=== PATIENT | female | born 2000 | race Caucasian/White ===

== ENCOUNTER → 2024-03-10 14:56 | Outpatient (CLI) | payer OTHER, SELFPAY ==
[2024-03-10 16:03] LABS: Natera Collection Specimen Collected
[2024-03-10 16:12] LABS: Add Manual Diff / Slide Review NO; Basophils Absolute Auto 0 /uL (0-100); Basophils Percent Auto 0.4 % (0-2); Eosinophils Absolute Auto 100 /uL (0-450); Eosinophils Percent Auto 1.2 % (2-4); Hematocrit 36.4 % (36-46); Hemoglobin 12.3 g/dL (12.0-16.0); Lymphocytes Absolute Auto 1900 /uL (1100-4500); Lymphocytes Percent Auto 31.2 % (25-40); Mean Corpuscular HGB Conc 33.8 % (30-36); Mean Corpuscular Hemoglobin 30.6 PG (26-34); Mean Corpuscular Volume 90.6 fL (80-100); Monocytes Absolute Auto 500 /uL (0-900); Monocytes Percent Auto 8.6 % (3-14); Neutrophils Absolute Auto 3600 /uL (1500-7000); Neutrophils Percent Auto 58.6 % (50-75); Platelet Count 215 X10^3/uL (150-400); Red Blood Cell Count 4.01 X10^6/uL (4.0-5.2); Red Cell Distribution Width 13.7 % (11.6-14.8); White Blood Cell Count 6.1 X10^3/uL (4.5-11.0)
[2024-03-11 15:24] LABS: Hepatitis B Surface Antigen NEGATIVE s/c (NEGATIVE); Rubella Antibody IgG 19.4 IU/mL (>15)
[2024-03-11 15:36] LABS: HIV 1 & 2 Ab/Ag 4th Gen Combo NEGATIVE (NEGATIVE); Hep C Virus Ab w/Reflex Quant NEGATIVE s/c (NEGATIVE)
[2024-03-12 04:08] LABS: RPR Screen Non Reactive (Non Reactive)
[2024-03-12 05:41] LABS: Varicella IgG Antibody Reactive (Non Reactive)
== END ==
PROVIDERS: Obstetrics & Gynecology; Referring Provider Specialist; Visit Provider Specialist
DX: Z34.01 Encounter for supervision of normal first pregnancy, first trimester (principal); Z3A.10 10 weeks gestation of pregnancy
CPT/HCPCS: 36415; 80055; 86787; 86803; 86850; 86900; 86901; 87389

== ENCOUNTER 2024-03-25 10:41 | Emergency (ER) | payer OTHER, SELFPAY ==
[2024-03-25] VITALS (8 sets, daily range): BP systolic 105–113; BP diastolic 57–76; PULSE 75–77; RESP 14–16; TEMP 37.5; O2SAT 97–99; BMI 19.6
--- NOTE | 2024-03-25 10:59 | DI.US.S_ITS ---
PROCEDURE: US OB <= 14 WEEKS FETUS INDICATIONS: SYNCOPE AND ABDOMEN PAIN OUTSIDE/PRIOR DATING DATA: Last menstrual period (LMP): 12/29/23. LMP-based estimated date of delivery (MELLISSA): 10/04/24. First dating scan (date and location): 03/10/24. Estimated date of delivery (MELLISSA) from first dating scan: 09/27/24. The calculations are made using the above MELLISSA of 09/27/24. TECHNIQUE: Real-time scanning was performed of the fetus and maternal pelvic organs, with image documentation. Endovaginal scanning was also performed to better visualize the fetus and maternal ovaries. COMPARISON: [facility], , OB <= 14 WEEKS FETUS, 03/10/2024, 14:39. FINDINGS: Embryo: Single living intrauterine gestation with crown-rump length 7.1 cm which correlates with a gestational age of 13 weeks 2 days +/-5 days. Heart rate: 152 Maternal organs: Ovaries not well seen on the right arterial and venous flow documented on the left.. IMPRESSION: Appropriate interval growth for the fetus. viability is currently documented. Nonvisualization of the right ovary, normal appearing left ovary. Dictated by: Judah Bryan M.D. on 03/25/2024 at 11:50 Approved by: Judah Bryan M.D. on 03/25/2024 at 11:52
--- NOTE | 2024-03-25 11:10 | EKG_ITS ---
[address] [address] Test Date: 2024-03-25 Pat Name: Raina Vazquez Department: Room: Gender: Female Associate Spa Director: RADHA : 2000 Requested By: Order Number: [id number] Reading MD: Caio Soriano MD Measurements Intervals [place] Rate: 70 P: 38 AL: 160 QRS: 62 QRSD: 92 T: 20 QT: 366 QTc: 395 Interpretive Statements Normal sinus rhythm Incomplete right bundle branch block NO PRIOR TRACING Electronically Signed On 03-26-2024 6:50:29 PST by Caio Soriano MD
[2024-03-25 11:26] LABS: Add Manual Diff / Slide Review NO; Basophils Absolute Auto 0 /uL (0-100); Basophils Percent Auto 0.4 % (0-2); Eosinophils Absolute Auto 0 /uL (0-450); Eosinophils Percent Auto 0.5 % (2-4); Lymphocytes Absolute Auto 1500 /uL (1100-4500); Lymphocytes Percent Auto 26.9 % (25-40); Mean Corpuscular HGB Conc 33.5 % (30-36); Mean Corpuscular Hemoglobin 30.1 PG (26-34); Monocytes Absolute Auto 500 /uL (0-900); Monocytes Percent Auto 8.6 % (3-14); Neutrophils Absolute Auto 3500 /uL (1500-7000); Neutrophils Percent Auto 63.6 % (50-75); Platelet Count 207 X10^3/uL (150-400); Red Cell Distribution Width 13.9 % (11.6-14.8); White Blood Cell Count 5.4 X10^3/uL (4.5-11.0)
[2024-03-25 11:40] LABS: Alanine Aminotransferase 12 IU/L (<35); Albumin 4.1 g/dL (3.5-5.0); Albumin Globulin Ratio 1.5 (1.0-2.8); Alkaline Phosphatase 42 U/L (38-126); Aspartate Aminotransferase 22 IU/L (14-36); BUN Creatinine Ratio 20.7 (6-22); Bilirubin Total 0.4 mg/dL (0.2-1.3); Blood Urea Nitrogen 12 mg/dL (7-17); Calcium 9.4 mg/dL (8.4-10.2); Carbon Dioxide 22 mmol/L (22-32); Chloride 109 mmol/L (98-107); Estimated Glomerular Filt Rate > 60 mL/min (>60); Globulin 2.8 g/dL (1.7-4.1); Glucose 85 mg/dL (70-100); HEMOLYSIS < 15 (0-50); Potassium 4.4 mmol/L (3.4-5.1); Sodium 135 mmol/L (137-145); Total Protein 6.9 g/dL (6.3-8.2)
[2024-03-25 12:20] LABS: HCG Quantitative /Beta subunit 92633 mIU/mL
--- NOTE | 2024-03-25 16:26 | ED_ITS ---
HPI - General Adult General Chief complaint: Abdominal Pain Stated complaint: Blacked out 13 weeks Time Seen by Provider: 03/25/24 16:24 Source: patient, RN notes reviewed and old records reviewed Mode of arrival: Ambulatory Limitations: no limitations History of Present Illness HPI narrative: 23 year old female approximately 13 weeks with no reported medical issues. Patient presents with complaint of some dizzy spells intermittently. Patient has noticed it over the past 2 weeks has felt little bit lightheaded last episode was yesterday. She states it happened when she was standing for prolonged periods of time feel sort of lightheaded starts to get sort of spots in her vision we will typically sit down and symptoms resolved. She has not had any syncopal episodes. No fevers. no chills, no chest pain or shortness of breath. She has had some mild nausea which she relates to her . No vomiting. She was has a little bit of right-sided abdominal pain she states feels somewhat similar to when she has had ovarian cysts. She describes it as mild. Patient at established with Dr. Barahona has had 1 visit. Patient states only medications are vitamin. She has had prior wisdom tooth removal and excision of skin lesion but no other surgeries. No known drug allergies. No tobacco, alcohol or recreational drugs. Related Data Home Medications Medication Instructions Recorded Confirmed vitamin-ferrous sulfate tab PO 02/12/24 03/10/24 27 mg iron-folic acid 0.8 mg tablet Allergies Allergy/AdvReac Type Severity Reaction Status Date / Time Latex, Natural Rubber Allergy Intermediate Rash Verified 03/25/24 10:55 Review of Systems Review of Systems ROS Unobtainable: All systems reviewed & are unremarkable except as noted in HPI and below Patient History Medical History Immunization, BCG Surgical History History of skin surgery [place] teeth extracted Social History marital status: unmarried,living together number of children: 0 household members: significant other lives independently: Yes caregiver/support person: No housing: apartment pets and animals: No education level: college (some college) occupational status: previously employed current occupational exposures/hazards: No special bogdan needs: No travel history: over 6 months ago seatbelt use: always helmet use: No water heater temp set < 120 deg: Yes working smoke detector in home: Yes fire extinguisher in home: Yes carbon monox detector in home: Yes firearms in home: No do you feel safe at home: Yes Smoking Status: Never smoker second hand exposure: No alcohol intake: former (~1-2/week when not ) substance use type: does not use during the past year weight has: decreased > 10 lbs (thinks it was due to ) well-balanced diet: daily or most days daily servings fruits/ve-4 caffeine: Yes (AM cup coffee) Type(s) of exercise: walking Smoking Status: Never smoker Exam Narrative Exam Narrative: GENERAL: Alert and oriented x three, female in mild distress HEENT: Head normocephalic, atraumatic, EOMI, pupils reactive, face symmetric, moist mucous membranes NECK: Supple, full range of motion CARDIOVASCULAR: Regular rate and rhythm without murmurs, rubs or gallops. RESPIRATORY: Breath sounds equal bilaterally, no wheezes rales or rhonchi. ABDOMEN: Soft, nontender. Normoactive bowel sounds all 4 quadrants. No guarding or rebound, rigidity, no mass : No CVA tenderness EXTREMITIES: Normal range of motion, no clubbing or edema. Neurovascularly intact NEUROLOGICAL: Cranial nerves II through XII grossly intact. Moving all extremities SKIN: Warm, dry, no petechiae, no rashes or lesions. Initial Vital Signs Initial Vital Signs: Vital Signs Temperature 99.5 F 03/25/24 10:55 Pulse Rate 75 03/25/24 10:55 Respiratory Rate 14 03/25/24 10:55 Blood Pressure 112/64 03/25/24 10:55 Pulse Oximetry 97 03/25/24 10:55 Oxygen Delivery Method Room Air 03/25/24 10:55 Course Orders Ordered: ED Orders 03/25/24 11:05 Complete Blood Count AUTO DIFF Stat Comprehensive Metabolic Panel Stat HCG Quantitative /Beta subunit Stat Type and Screen Stat 03/25/24 11:10 EKG-12 Lead Routine Vital Signs Vital signs: Vital Signs - 8 hr 03/25/24 13:22 03/25/24 13:22 03/25/24 13:23 Pulse Rate 77 Respiratory Rate Blood Pressure 113/57 L Pulse Oximetry 98 97 Oxygen Delivery Method Room Air Room Air 03/25/24 13:30 03/25/24 14:00 03/25/24 14:30 Pulse Rate Respiratory Rate Blood Pressure 106/58 L 111/76 105/60 Pulse Oximetry Oxygen Delivery Method 03/25/24 15:00 03/25/24 17:21 Pulse Rate 75 Respiratory Rate 16 Blood Pressure 111/63 112/67 Pulse Oximetry 99 Oxygen Delivery Method Room Air Medical Decision Making Lab Data 03/25/24 11:05 03/25/24 11:05 Labs: Lab Results 03/25/24 Range/Units 11:05 WBC 5.4 (4.5-11.0) X10^3/uL RBC 4.00 (4.0-5.2) X10^6/uL Hgb 12.0 (12.0-16.0) g/dL Hct 36.0 (36-46) % MCV 90.0 (80-100) fL MCH 30.1 (26-34) PG MCHC 33.5 (30-36) % RDW 13.9 (11.6-14.8) % Plt Count 207 (150-400) X10^3/uL Neut % (Auto) 63.6 (50-75) % Lymph % (Auto) 26.9 (25-40) % [place] % (Auto) 8.6 (3-14) % Eos % (Auto) 0.5 L (2-4) % Baso % (Auto) 0.4 (0-2) % Neut # (Auto) 3500 (5214-0883) /uL Lymph # (Auto) 1500 (9551-2012) /uL [place] # (Auto) 500 (0-900) /uL Eos # (Auto) 0 (0-450) /uL Baso # (Auto) 0 (0-100) /uL Sodium 135 L (137-145) mmol/L Potassium 4.4 (3.4-5.1) mmol/L Chloride 109 H (98-107) mmol/L Carbon Dioxide 22 (22-32) mmol/L BUN 12 (7-17) mg/dL Creatinine 0.58 (0.52-1.04) mg/dL Estimated GFR > 60 (>60) mL/min BUN/Creatinine Ratio 20.7 (6-22) Glucose 85 (70-100) mg/dL Calcium 9.4 (8.4-10.2) mg/dL Total Bilirubin 0.4 (0.2-1.3) mg/dL AST 22 (14-36) IU/L ALT 12 (<35) IU/L Alkaline Phosphatase 42 (38-126) U/L Total Protein 6.9 (6.3-8.2) g/dL Albumin 4.1 (3.5-5.0) g/dL Globulin 2.8 (1.7-4.1) g/dL Albumin/Globulin Ratio 1.5 (1.0-2.8) HCG, Quant 87558 mIU/mL Blood Type O Positive Antibody Screen Negative Urine Dip Bedside Urine Glucose Negative Bedside Urine Bilirubin - Negative Bedside Urine Ketone - Negative Urine Specific [place] 1.030 Bedside Urine Occult Blood - Negative Bedside Urine pH 6.0 Bedside Urine Protein - Negative Bedside Urine Urobilinogen - Negative Bedside Urine Nitrite - Negative Bedside Urine Leukocytes - Negative Esterase Point of care testing: Urine Dip Bedside Urine Glucose Negative Bedside Urine Bilirubin - Negative Bedside Urine Ketone - Negative Urine Specific [place] 1.030 Bedside Urine Occult Blood - Negative Bedside Urine pH 6.0 Bedside Urine Protein - Negative Bedside Urine Urobilinogen - Negative Bedside Urine Nitrite - Negative Bedside Urine Leukocytes - Negative Esterase Imaging Data US - ASSESSMENT MANAGER: Radiologist's Impression: [place] [address] Ultrasound Report Signed Patient: Raina Vazquez MR#: [id number] : 2000 Acct:[id number] Age/Sex: 23 / F Date of Service: 03/25/24 Loc: ED Accession Number: [id number] Procedure: US OB <= 14 weeks fetus Ordering Provider: Monique Cruz D.O. PROCEDURE: US OB <= 14 WEEKS FETUS INDICATIONS: SYNCOPE AND ABDOMEN PAIN OUTSIDE/PRIOR DATING DATA: Last menstrual period (LMP): 12/29/23. LMP-based estimated date of delivery (MELLISSA): 10/04/24. First dating scan (date and location): 03/10/24. Estimated date of delivery (MELLISSA) from first dating scan: 09/27/24. The calculations are made using the above MELLISSA of 09/27/24. TECHNIQUE: Real-time scanning was performed of the fetus and maternal pelvic organs, with image documentation. Endovaginal scanning was also performed to better visualize the fetus and maternal ovaries. COMPARISON: [facility], US, US OB <= 14 WEEKS FETUS, 03/10/2024, 14:39. FINDINGS: Embryo: Single living intrauterine gestation with crown-rump length 7.1 cm which correlates with a gestational age of 13 weeks 2 days +/-5 days. Heart rate: 152 Maternal organs: Ovaries not well seen on the right arterial and venous flow documented on the left.. IMPRESSION: Appropriate interval growth for the fetus. viability is currently documented. Nonvisualization of the right ovary, normal appearing left ovary. Dictated by: Judah Bryan M.D. on 03/25/2024 at 11:50 Approved by: Judah Bryan M.D. on 03/25/2024 at 11:52 ECG Data Attestation: I personally reviewed and interpreted this ECG as follows: Prior ECG tracings: not available for review Interpretation: Sinus rhythm incomplete right bundle, rate of 70, [place] 160 QRS of 92 QTC of 395. No priors for comparison. MDM Narrative Medical decision making narrative: 23-year-old female approximately 13 weeks' gestation has had some mild dizziness but no syncopal episodes notes it has been she was upright for prolonged periods of time. Last episode was yesterday. Patient's overall healthy-appearing no major lab changes on CBC CMP EKG shows incomplete right bundle-branch with no priors. Patient has a little bit of right lower quadrant pain but she describes as mild, ultrasounds has intrauterine gestation, right ovaries not fully visualized but she was very mildly tender on exam and felt appropriate for discharge with follow up with OBGYN. Patient expresses understanding reviewed we did not visualize the right ovary but suspicion for ectopic is lower at this time, appendectomy, kidney stone etcetera is also lower. Labs show normal CBC, sodium 135 otherwise appropriate chemistries except for chloride of 109 hCG quantitative is 92,633 Appropriate interval growth for fetus viability currently documented no visualization right ovary normal-appearing left ovary. Gestational age of 13 weeks 2 days +/-5 days with a rate of 152. EKG shows sinus rhythm incomplete right bundle-branch rate of 70 O positive. Discharge Plan Departure Patient Disposition: Home Clinical Impression: Abdominal pain affecting Activity Restrictions/Additional Instructions: Please follow up with with the provider for rechecked. Your imaging today showed intrauterine , they were not able to well visualize your right ovary if you are having any persistent pain please follow up. Your blood type was O positive You can take acetaminophen up to a 1000 mg every 6 hours as needed for pain. Make sure you are hydrating regularly. Please return for fevers, severe headaches, new chest pain or shortness of breath, new or worsening abdominal back or flank pain, any persistent vomiting, black or bloody stools, worsening or lightheadedness or passing out or other new or concerning changes. Prescriptions: No Action vit-ferrous sulfat-FA 27 mg iron- 0.8 mg tablet PO Referrals: Didi Barahona MD [Physician] - Stand Alone Forms: Patient Portal/API/Survey
== END 2024-03-25 17:20 | disposition home or self-care (01) ==
PROVIDERS: Emergency Provider Emergency Medicine
DX: O26.891 Other specified pregnancy related conditions, first trimester (principal); R42 Dizziness and giddiness; I45.10 Unspecified right bundle-branch block; R10.31 Right lower quadrant pain; R11.0 Nausea; Z3A.13 13 weeks gestation of pregnancy
CPT/HCPCS: 36415; 76801; 76817; 80053; 81003; 84702; 85025; 86850; 86900; 86901; 93005; 93010; 93976; 99283; 99284

== ENCOUNTER → 2024-05-05 15:20 | Outpatient (CLI) | payer OTHER, SELFPAY | PROVIDERS: Referring Provider Obstetrics & Gynecology; Visit Provider Obstetrics & Gynecology | DX: Z34.92 Encounter for supervision of normal pregnancy, unspecified, second trimester (principal); Z3A.19 19 weeks gestation of pregnancy | CPT/HCPCS: 36415; 82105 ==

== ENCOUNTER → 2024-05-12 14:29 | Outpatient (CLI) | payer OTHER, SELFPAY ==
--- NOTE | 2024-05-12 14:30 | DI.US.S_ITS ---
PROCEDURE: US OB >= 14 WEEKS FETUS INDICATIONS: 20 week anatomy scan OUTSIDE/PRIOR DATING DATA: Last menstrual period (LMP): 12/29/2023. LMP-based estimated date of delivery (MELLISSA): 10/04/2024. First dating scan (date and location): 03/10/2024. Estimated date of delivery (MELLISSA) from first dating scan: 09/27/2024. The calculations are made using the working MELLISSA of 09/28/2019. TECHNIQUE: Real-time scanning was performed of the fetus, with image documentation and biometric measurements. Endovaginal scanning: No COMPARISON: None. FINDINGS: General: A single living intrauterine gestation is present. Presentation: Breech. Placenta: Placental position is anterior , without previa. Amniotic fluid index: 15.0 cm, normal range is 5-24 cm. Single deepest vertical pocket is 6.3 cm. heart rate: 127 beats per minute. Maternal cervical canal: 5.0 cm long. Normal lower limit is 2.5 cm. biometrics: Biparietal diameter: 4.5 cm, 19 week 5 day Head circumference: 17.4 cm, 19 week 6 day Abdominal circumference: 15.7 cm, 20 week 6 day Femur length: 3.1 cm, 19 week 4 day Clinically estimated gestational age: 20 week 2 day Composite gestational age from present scan: 20 week 0 day Estimated weight and percentile: 338 g, 40 percentile Anatomic survey: Neuro: Ventricles are non-dilated at less than 10 mm. Cisterna magna is normal at 3-11 mm. Cerebellum is normal in size and morphology. Nuchal skin fold: Normal at less than 6 mm between 14-21 weeks gestational age. Face: Nose and lips, facial profile are normal. Spine: No evidence for spina bifida. Heart: 4-chambered heart is present, with normal ventricular outflow tracts. Diaphragm: Diaphragm is intact. Stomach: Left-sided stomach is present. Kidneys: No hydronephrosis. Normal is less than 5 mm in 2nd trimester, less than 7 mm in 3rd trimester. Cord: 3-vessel cord has orthotopic insertion. Bladder: Normal in size. Extremities: All 4 extremities identified. IMPRESSION: Single live intrauterine consistent with 20 week 0 day gestation by current ultrasound Approved by: Sen Mcdaniel M.D. on 05/12/2024 at 18:51
== END ==
PROVIDERS: Referring Provider Obstetrics & Gynecology; Visit Provider Obstetrics & Gynecology
DX: Z3A.20 20 weeks gestation of pregnancy (principal); Z34.92 Encounter for supervision of normal pregnancy, unspecified, second trimester
CPT/HCPCS: 76811

== ENCOUNTER → 2024-06-18 12:03 | Outpatient (CLI) | payer OTHER, SELFPAY ==
[2024-06-18 14:25] LABS: Hematocrit 33.1 % (36-46); Hemoglobin 10.9 g/dL (12.0-16.0)
[2024-06-18 14:57] LABS: GTT (PREG) 1 Hour PP 50gm Dose 100 mg/dL (76-139)
== END ==
PROVIDERS: Referring Provider Specialist; Visit Provider Specialist
DX: Z34.02 Encounter for supervision of normal first pregnancy, second trimester (principal); Z3A.26 26 weeks gestation of pregnancy
CPT/HCPCS: 82950; 85014; 85018; 87086

== ENCOUNTER 2024-07-16 10:05 | Outpatient (CLI) | payer OTHER, SELFPAY | END 2024-07-16 10:46 | disposition home or self-care (01) | LOC: OB 12:17 | PROVIDERS: Referring Provider Obstetrics & Gynecology; Visit Provider Obstetrics & Gynecology | DX: O47.03 False labor before 37 completed weeks of gestation, third trimester (principal); Z3A.29 29 weeks gestation of pregnancy | CPT/HCPCS: 59025; G0378; G0379 ==

== ENCOUNTER 2024-08-17 07:06 | Observation (INO) | payer OTHER, SELFPAY ==
[2024-08-17 07:55] LABS: Appearance Urine UA CLEAR; Bilirubin Urine UA NEGATIVE (NEGATIVE); Color Urine UA YELLOW; Glucose Urine UA NEGATIVE (Negative); Ketones Urine UA NEGATIVE (NEGATIVE); Leukocyte Esterase Urine UA NEGATIVE (NEGATIVE); Nitrite Urine UA NEGATIVE (Negative); Occult Blood Urine UA NEGATIVE (Negative); Protein Urine UA NEGATIVE (Negative); Specific Gravity Urine UA <=1.005 (1.000-1.035); Urobilinogen Urine UA 0.2 E.U./dL (0.2)
[2024-08-17 07:57] LABS: pH Urine UA 5.5 (4.5-8.0)
[2024-08-17 08:03] LABS: Culture Indicated Urine Cult Not Indicated
--- NOTE | 2024-08-17 17:42 | PM.OBTRLD ---
Visit Information Visit Information Date of evaluation: 08/17/24 Primary OB Provider: Fidelia Dotson On-call OB Provider: Shaniqua Vásquez Comments/Additional reasons for admission: 23yo at 34w1d here due to concerns for contractions. Pt reports feeling frequent abdominal tightening and pain. Also with some back pain. No vaginal bleeding or LOF. She is feeling her baby move regularly. [facility] Medical History Immunization, BCG Surgical History History of skin surgery [place] teeth extracted Social History marital status: unmarried,living together number of children: 0 household members: significant other lives independently: Yes caregiver/support person: No housing: apartment pets and animals: No education level: college (some college) occupational status: previously employed current occupational exposures/hazards: No special bogdan needs: No travel history: over 6 months ago seatbelt use: always helmet use: No water heater temp set < 120 deg: Yes working smoke detector in home: Yes fire extinguisher in home: Yes carbon monox detector in home: Yes firearms in home: No do you feel safe at home: Yes second hand exposure: No alcohol intake: former (~1-2/week when not ) substance use type: does not use during the past year weight has: decreased > 10 lbs (thinks it was due to ) well-balanced diet: daily or most days daily servings fruits/ve-4 caffeine: Yes (AM cup coffee) Type(s) of exercise: walking Objective Labs Labs: Laboratory Results - last 24 hr 08/17/24 07:24 Urine Color Yellow Urine Appearance Clear Urine pH 5.5 Ur Specific [place] <=1.005 Urine Protein Negative Urine Glucose (UA) Negative Urine Ketones Negative Urine Occult Blood Negative Urine Nitrate Negative Urine Bilirubin Negative Urine Urobilinogen 0.2 Ur Leukocyte Esterase Negative Urine RBC 0-1/hpf Urine WBC 0-1/hpf Ur Squamous Epith Cells 1-5 /hpf Urine Bacteria Occasional (0-1) Ur Culture Indicated? Cult not indicated Vol Urine Centrifuged 10ml (spun) Evaluation Evaluation Baseline heart rate: 125 Variability: Moderate (6-25) monitor accelerations: Present Monitor Decelerations: Absent Category of Tracing: Reactive Diagnosis, Plan/Disposition Final Diagnosis (1) contractions: Status: Acute (2) 34 weeks gestation of : Status: Acute Plan/Disposition Plan: 23yo at 34w1d here due to concerns for contractions. Tracing initially with intermittent contractions, that did not reliably align with pt marking abdominal pain/tightening. On palpation, contractions on monitoring either not present or mild. U/A without evidence of UTI and shows pt quite well hydrated. Pt remained quite concerned. While clinical concern for labor was low, proceeded with PO Nifedipine 10mg x4. Contractions on monitoring completely resolved with medication. After prolonged monitoring after administration pt remained asymptomatic. Continued to feel some abdominal tightening, however after further discussion with nurse thought to be more likely movement. Stable for d/c home. OB Disposition: home
== END 2024-08-17 09:50 | disposition home or self-care (01) ==
LOC: LABOR 07:08
PROVIDERS: Admitting Provider Family Medicine; Referring Provider Family Medicine; Visit Provider Family Medicine
DX: O47.03 False labor before 37 completed weeks of gestation, third trimester (principal); Z3A.34 34 weeks gestation of pregnancy
CPT/HCPCS: 59025; 59050; 81001; G0378; G0379

== ENCOUNTER 2024-08-23 16:34 | Observation (INO) | payer OTHER, SELFPAY ==
[2024-08-23 17:16] LABS: Appearance Urine UA CLEAR; Bilirubin Urine UA NEGATIVE (NEGATIVE); Color Urine UA YELLOW; Glucose Urine UA NEGATIVE (Negative); Ketones Urine UA NEGATIVE (NEGATIVE); Leukocyte Esterase Urine UA NEGATIVE (NEGATIVE); Nitrite Urine UA NEGATIVE (Negative); Occult Blood Urine UA NEGATIVE (Negative); Protein Urine UA NEGATIVE (Negative); Specific Gravity Urine UA <=1.005 (1.000-1.035); Urobilinogen Urine UA 0.2 E.U./dL (0.2)
[2024-08-23 17:22] LABS: pH Urine UA 6.5 (4.5-8.0)
[2024-08-23 17:24] LABS: Culture Indicated Urine Cult Not Indicated
[2024-08-23] MEDS: ACETAMINOPHEN 325 MG TABLET 975 MG PO (18:13)
[2024-08-23] MEDS: TERBUTALINE 1 MG/ML VIAL 0.25 MG SUBCUT (19:23)
== END 2024-08-23 19:59 | disposition home or self-care (01) ==
PROVIDERS: Admitting Provider Obstetrics & Gynecology; Referring Provider Obstetrics & Gynecology; Visit Provider Obstetrics & Gynecology
DX: O26.893 Other specified pregnancy related conditions, third trimester (principal); R10.30 Lower abdominal pain, unspecified; Z3A.35 35 weeks gestation of pregnancy
CPT/HCPCS: 59025; 59050; 81001; 96372; G0378; G0379

== ENCOUNTER 2024-08-31 17:41 | Outpatient (CLI) | payer OTHER, SELFPAY | END 2024-08-31 19:00 | disposition home or self-care (01) | LOC: OB 09-02 12:43 | PROVIDERS: Referring Provider Obstetrics & Gynecology; Visit Provider Obstetrics & Gynecology | DX: O36.8130 Decreased fetal movements, third trimester, not applicable or unspecified (principal); Z3A.36 36 weeks gestation of pregnancy | CPT/HCPCS: 59025; G0378; G0379 ==

== ENCOUNTER → 2024-09-06 15:30 | Outpatient (CLI) | payer OTHER, SELFPAY ==
[2024-09-07 14:52] LABS: Strep Grp B PCR NEG for Grp B Strep
== END ==
PROVIDERS: Visit Provider Obstetrics & Gynecology
DX: Z34.83 Encounter for supervision of other normal pregnancy, third trimester (principal); Z3A.36 36 weeks gestation of pregnancy
CPT/HCPCS: 87653

== ENCOUNTER 2024-09-08 21:39 | Observation (INO) | payer OTHER, SELFPAY ==
--- NOTE | 2024-09-09 00:16 | PM.OBTRLD ---
Visit Information Visit Information Date of evaluation: 09/09/24 Primary OB Provider: Shaniqua Vásquez On-call OB Provider: Fidelia Dotson Comments/Additional reasons for admission: 23yo at 37w3d here due to contractions. Pt reports feeling contractions up to every 2 minutes prior to presentation. No vaginal bleeding or LOF. She is feeling her baby move regularly. PFSH Medical History Immunization, BCG Surgical History History of skin surgery [place] teeth extracted Social History marital status: unmarried,living together number of children: 0 household members: significant other lives independently: Yes caregiver/support person: No housing: apartment pets and animals: No education level: college (some college) occupational status: previously employed current occupational exposures/hazards: No special bogdan needs: No travel history: over 6 months ago seatbelt use: always helmet use: No water heater temp set < 120 deg: Yes working smoke detector in home: Yes fire extinguisher in home: Yes carbon monox detector in home: Yes firearms in home: No do you feel safe at home: Yes second hand exposure: No alcohol intake: former (~1-2/week when not ) substance use type: does not use during the past year weight has: decreased > 10 lbs (thinks it was due to ) well-balanced diet: daily or most days daily servings fruits/ve-4 caffeine: Yes (AM cup coffee) Type(s) of exercise: walking Evaluation Evaluation Baseline heart rate: 120 Variability: Moderate (6-25) monitor accelerations: Present Monitor Decelerations: Absent Category of Tracing: Reactive Cervical dilation (cm): 1 Cervical effacement (%): 20 station: -3 Diagnosis, Plan/Disposition Final Diagnosis (1) False labor: Status: Acute (2) 37 weeks gestation of : Status: Acute Plan/Disposition Plan: 23yo at 37w3d here due to concerns for labor. Cervical exam with 1cm external os, fingertip internal. No significant cervical change after 2hrs, and contractions are spacing apart. Pt feels comfortable returning home at this point. Return precautions discussed. OB Disposition: home
== END 2024-09-09 00:25 | disposition home or self-care (01) ==
PROVIDERS: Admitting Provider Family Medicine; Referring Provider Family Medicine; Visit Provider Family Medicine
DX: O47.1 False labor at or after 37 completed weeks of gestation (principal); Z3A.37 37 weeks gestation of pregnancy
CPT/HCPCS: 59050; G0378; G0379